=== PATIENT | female | born 1945 | race Caucasian/White ===

== ENCOUNTER 2017-01-25 08:35 | Outpatient (CLI) | payer MEDICARE, BC ==
[2013-11-21 13:34] VITALS: BMI 41.2
[~2017-01-25 08:35] MED LIST: ASPIRIN325 MG PO; COUMADIN6 MG PO; DYAZIDE 37.5/251 CAP PO; MAXZIDE-25 MG T1 TAB PO; NORCO 10/325 TA1 TA1 PO; PROZAC20 MG PO; VITAMIN B-1000 MCG/M; VITAMIN B-1250 MCG PO; ZOCOR20 MG PO
== END 2017-01-25 14:23 ==
LOC: D.MAMMO 08:35
DX: Z12.31 Encounter for screening mammogram for malignant neoplasm of breast (principal)

== ENCOUNTER → 2019-02-28 11:30 | Outpatient (CLI) | payer MEDICARE, BC ==
[2013-11-21 13:34] VITALS: BMI 41.2
== END | disposition home or self-care (01) ==
LOC: D.MAMMO 09:30
PROVIDERS: ATTEND Family Medicine
DX: Z12.31 Encounter for screening mammogram for malignant neoplasm of breast (principal)